=== PATIENT | female | born 1945 | race Caucasian/White ===

== ENCOUNTER 2019-01-24 01:43 | Emergency (ER) | payer MEDICARE, OTHER ==
[~2019-01-24] VITALS: Ht 165.1 cm; Wt 81.8 kg
[2019-01-24 01:46] VITALS: Ht 165.1 cm; Wt 81.8 kg
[2019-01-24] MEDS ORDERED: OMEPRAZOLE20 M1 PO (01:49)
[2019-01-24] MEDS ORDERED: COZAAR50 MG PO (01:49)
[2019-01-24] MEDS ORDERED: COREG12.5 MG PO (01:50)
[2019-01-24] MEDS ORDERED: NULEV0.125 MG PO (01:50)
[2019-01-24] MEDS ORDERED: ZOFRAN4 MG PO (01:51)
[2019-01-24 02:29] LABS: BASOPHILS 0.1 % (0-2); EOSINOPHILS 0.7 % (0-7); HEMATOCRIT 41.4 % (36.0-48.0); HEMOGLOBIN 14.1 g/dL (12-16); IMMATURE GRANULOCYTES 0.1 % (0-5); LYMPHOCYTES 6.4 % (15-50); MCH 31.1 pg (26.0-34.0); MCHC 34.1 g/dL (31.0-37.0); MCV 91.2 fL (80.0-100.0); MEAN PLATELET VOLUME 11.3 fL (7.4-10.4); MONOCYTES 4.9 % (2-11); NEUTROPHILS 87.8 % (40-80); PLATELET COUNT 190 10x3/uL (130-400); RBC 4.54 10x6/uL (4.00-5.40); RDW 13.9 % (11.5-14.5); WBC 14.8 10x3/uL (4.8-10.8)
[2019-01-24 02:41] LABS: ALBUMIN 3.4 g/dL (3.4-5.0); ANION GAP 7.9 mmol/L (8-16); BILIRUBIN - TOTAL 0.42 mg/dL (0.2-1.3); CALCIUM 8.9 mg/dL (8.5-10.1); CARBON DIOXIDE 31.8 mmol/L (21.0-32.0); CREATININE - SERUM 0.9 mg/dL (0.6-1.3); POTASSIUM - SERUM 3.7 mmol/L (3.5-5.1); PROTEIN - SERUM 7.2 g/dL (6.4-8.2)
[2019-01-24] MEDS ORDERED: ZOFRAN ODT4 MG/UDTAB PO (02:52)
[2019-01-24] MEDS ORDERED: IMODIUM2 MG PO (02:52)
[2019-01-24 05:35] VITALS: BP 109/48
== END 2019-01-24 05:35 | disposition home or self-care (01) ==
LOC: D.ER 01:43
PROVIDERS: Emergency Medicine
DX: K52.29 Other allergic and dietetic gastroenteritis and colitis (principal); E86.0 Dehydration

== ENCOUNTER 2019-05-18 19:30 | Emergency (ER) | payer MEDICARE, OTHER ==
[~2019-05-18] VITALS: Ht 165.1 cm; Wt 77.3 kg
[~2019-05-18 19:30] MED LIST: COREG12.5 MG PO; COZAAR50 MG PO; IMODIUM2 MG PO; NULEV0.125 MG PO; OMEPRAZOLE20 M1 PO; ZOFRAN ODT4 MG/UDTAB PO; ZOFRAN4 MG PO
[2019-05-18 19:49] VITALS: Ht 165.1 cm; Wt 77.3 kg
[2019-05-18] MEDS ORDERED: FLUTICASONE PRO16 GM NASAL (21:09)
[2019-05-18] MEDS ORDERED: AMOXICILLIN500 M1 PO (21:09)
[2019-05-18 22:04] VITALS: BP 132/73
== END 2019-05-18 22:04 | disposition home or self-care (01) ==
LOC: D.ER 19:30
DX: J32.9 Chronic sinusitis, unspecified (principal); J44.9 Chronic obstructive pulmonary disease, unspecified; Z95.0 Presence of cardiac pacemaker

== ENCOUNTER 2019-06-11 05:39 | Inpatient (IN) | payer MEDICARE, OTHER ==
[~2019-06-11] VITALS: Ht 165.1 cm; Wt 85.8 kg
--- NOTE | ~2019-06-11 | EC ---
PATIENT:TIMUR ROLAND DATE OF SERVICE: 06/11/19 SEX: F MEDICAL RECORD: [id number] DATE OF : 43 LOCATION:D.M2 D.210 AGE OF PATIENT: 74 ADMISSION DATE: 06/11/19 REFERRING PHYSICIAN: INTERPRETING PHYSICIAN: ANA LUISA NICHOLE MD ECHOCARDIOGRAM REPORT ECHO CHARGES 4 ECHO COMPLETE Date: 06/11/19 CLINICAL DIAGNOSIS: SOB/FLU HX OF ICD ECHOCARDIOGRAPHIC MEASUREMENTS (adult normal given) AC root (d.<3.7cm) 3.5 cm LV Septum d (<1.2 cm> 1.3 cm Valve Excursion 1.7 cm LV Septum (systole) 1.6 cm Left Atria (s.<4.0cm> 3.7 cm LVPW d(<1.2cm) 1.4 cm RV (d.<2.3cm) 4.3 cm LVPW (sytole) 1.7 cm LV diastole(<5.6CM) 4.9 cm MV E-F(>70mm/sec) cm LV systole 3.6 cm LVOT Diameter 1.9 cm MV exc.(>10mm) 1.6 cm Est.ejection fraction (50-75%) % DOPPLER: LVIT cm/sec A 86.0 cm/sec E 62.0 cm/sec LA cm/sec RVSP 27 mmHg LVOT 94 cm/sec AOP1/2T m/s Asc. Ao 134 cm/sec RVOT 87 cm/sec RA cm/sec PA 123 cm/sec AV Gradient Peak 7.14 mmHg AV Mean 4.26 mmHg AV Area 1.9 cm MV Gradient Peak 2.81 mmHg MV Mean 1.31 mmHg MV Area cm COMMENTS: Life Sciences Manager: 2 AIDEN ALEMAN Hydro Generation Manager: 1 Dr. Nichole TAPE# PACS Pericardial Effusion N DATE OF SERVICE: ECHOCARDIOGRAM FINDINGS: 1. Left ventricular chamber size is within normal limits. Left ventricular systolic function is normal. Overall ejection fraction estimated at 65%. 2. Left atrium is within normal limits at 3.7 cm. Right atrium and right ventricle chamber sizes are mildly dilated. 3. Valvular structures have normal structure and motion. ECHOCARDIOGRAM REPORT [id number] TIMUR ROLAND 4. Doppler interrogation reveals mild aortic insufficiency, mild tricuspid regurgitation, no other valvular insufficiency or stenosis. 5. No evidence of pericardial effusion or left ventricular thrombus. TRANSINT:[id number] Voice Confirmation ID: [id number] DOCUMENT ID: [id number] ANA LUISA NICHOLE MD CC: [id number] DICTATION DATE: 06/12/19 1255 GROCERY CLERK STOCKING: 06/12/19 1344 ADM IN [facility] [address] [id number]
--- NOTE | ~2019-06-11 | CN ---
PATIENT NAME:TIMUR ESPINAL MEDICAL RECORD: [id number] : 43 LOCATION:. D.2104 ADMIT DATE: 06/11/19 ACCOUNT: [id number] CONSULTING PHYSICIAN: ANA LUISA OCAMPO MD REFERRING PHYSICIAN: PELON SAAB MD DATE OF CONSULTATION: 06/11/2019 CARDIOLOGY CONSULTATION DIAGNOSES: 1. Shortness of breath, dyspnea on exertion. 2. Pneumonia. 3. Valvular heart disease. 4. Cardiomyopathy. 5. ICD. 6. Hypertension. 7. Chronic obstructive pulmonary disease. 8. Chest pain. HISTORY OF PRESENT ILLNESS: Ms. Espinal presents with 1 week of increasing shortness of breath, dyspnea on exertion. She has not noted any fever or chills. She has had a cough that is productive of discolored sputum. She was admitted and is being treated for pneumonia. She has a history of a cardiomyopathy, followed at the [facility]. This appears to be a nonischemic cardiomyopathy. She underwent cardiac catheterization that revealed no significant coronary artery disease. She has been having some chest pain, but only associated with cough. No chest pain elsewise. She was told that her cardiomyopathy was due to valvular heart disease and she has an ICD. She is not in any heart failure. She has no lower extremity edema. Shortness of breath has just been since the pneumonia. She is on Coreg and Cozaar for medical therapy of the cardiomyopathy. She has had no ICD discharges. PHYSICAL EXAMINATION: CONSTITUTIONAL/GENERAL APPEARANCE: Well nourished, well developed, appears stated age. EYES: Lids and conjunctivae noninjected. No discharge. No pallor. ENT: Lips within normal limit. No cyanosis. No pallor. NECK: Carotid arteries, bilateral normal upstroke. No bruits. No thrills. No jugular venous pressure or distention. CERVICAL LYMPH NODES: Nontender. Nonenlarged. THYROID: Not enlarged. No nodules. CARDIOVASCULAR: Precordial exam, nondisplaced. No heaves or pericardial thrills. Rate and rhythm, regular. Heart sounds, normal S1, normal S2. No S3, no gallop, no rub. Systolic murmur, not heard. Diastolic murmur, not heard. RESPIRATORY: Respiratory effort, unlabored. Normal curvature. No thoracic deformity. No chest wall tenderness. Percussion, resonant. Auscultation, clear. No wheezes, no rales, no rhonchi. ABDOMEN: Soft, nondistended, nontender. No abdominal pain, no vomiting and normal appetite. MUSCULOSKELETAL: No joint tenderness, normal gait, normal tone. SKIN: Warm and dry. OVERALL IMPRESSION: Cardiomyopathy, but is stable from a cardiac standpoint at this time. No dysrhythmias are noted. At this time, she is stable from a cardiac standpoint. We will get an echocardiogram so we have that documentation CONSULT REPORT [id number] TIMUR ESPINAL here, otherwise no other cardiac workup or treatment is necessary. TRANSINT:[id number] Voice Confirmation ID: [id number] DOCUMENT ID: [id number] ANA LUISA OCAMPO MD CC: [id number] DICTATION DATE: 06/11/19916 PIPE SMOKER MACHINE OPERATOR: 06/11/19 1029 ADM IN [id number] [place] [address]
[~2019-06-11 05:39] MED LIST changes: +AMOXICILLIN500 M1 PO; +FLUTICASONE PRO16 GM NASAL
[2019-06-11] MEDS ORDERED: SPIRIVA18 MCG (05:48)
[2019-06-11] MEDS ORDERED: ALBUTEROL SULF8.5 GM INH (05:48)
[2019-06-11 06:07] LABS: BASOPHILS 0.4 % (0-2); EOSINOPHILS 3.3 % (0-7); HEMATOCRIT 39.9 % (36.0-48.0); HEMOGLOBIN 13.2 g/dL (12-16); IMMATURE GRANULOCYTES 0.2 % (0-5); LYMPHOCYTES 14.6 % (15-50); MCH 30.5 pg (26.0-34.0); MCHC 33.1 g/dL (31.0-37.0); MCV 92.1 fL (80.0-100.0); MEAN PLATELET VOLUME 10.7 fL (7.4-10.4); MONOCYTES 14.1 % (2-11); NEUTROPHILS 67.4 % (40-80); PLATELET COUNT 217 10x3/uL (130-400); RBC 4.33 10x6/uL (4.00-5.40); RDW 13.8 % (11.5-14.5); WBC 8.4 10x3/uL (4.8-10.8)
[2019-06-11 06:20] LABS: CALC OSMOLALITY 273 mosm/kg (275-300); CARBON DIOXIDE 29.1 mmol/L (21.0-32.0); CHLORIDE - SERUM 100 mmol/L (98-107); CREATININE - SERUM 0.7 mg/dL (0.6-1.3); GLUCOSE 118 mg/dL (74-106); POTASSIUM - SERUM 3.9 mmol/L (3.5-5.1); SODIUM 137 mmol/L (136-145); UREA NITROGEN 9 mg/dL (7-18); eGFR NON AFRICAN AMERICAN 86 mL/min (90-120)
[2019-06-11 06:24] LABS: APTT 30.8 SECONDS (22.8-39.4); INR 1.11 (0.85-1.17); PROTIME 13.8 SECONDS (11.6-15.0)
[2019-06-11 06:26] LABS: D-DIMER-QUANTITATIVE 1.65 ug/mLFEU (0.20-0.54)
[2019-06-11 06:32] LABS: ALBUMIN 3.1 g/dL (3.4-5.0); ALKALINE PHOSPHATASE 109 U/L (46-116); ALT (SGPT) 24 U/L (10-68); BILIRUBIN - TOTAL 0.53 mg/dL (0.2-1.3); MAGNESIUM - SERUM 1.9 mg/dL (1.8-2.4); PRO BNP 802 pg/mL (0-450)
[2019-06-11 06:39] LABS: TROPONIN-I < 0.017 ng/mL (0.000-0.060)
[2019-06-11 06:57] LABS: APPEARANCE CLEAR (CLEAR); BILIRUBIN NEGATIVE (NEGATIVE); COLOR STRAW (YELLOW); GLUCOSE NEGATIVE (NEGATIVE); KETONE NEGATIVE (NEGATIVE); NITRITE NEGATIVE (NEGATIVE); PROTEIN NEGATIVE (NEGATIVE); SPECIFIC GRAVITY 1.005 (1.005-1.020); UROBILINOGEN NORMAL (NORMAL)
--- NOTE | 2019-06-11 07:40 | NUR ---
PATIENT ARRIVED HERE FROM THE ER. SHE REPORTS THAT SHE HAS BEEN NOT FEELING WELL SINCE THANKSGIVING, BUT SHE HAS BEEN PUSHING THROUGH. SHE WENT TO THE CLINIC AND GOT SOME MEDICATIONS THAT WORKED FOR A SHORT TIME AND THEN STOPPED WORKING.
[2019-06-11 08:26] VITALS: BP 137/57
--- NOTE | 2019-06-11 10:53 | NUR ---
collected flu swab and turned in to lab.
[2019-06-11 12:03] VITALS: BP 137/57
[2019-06-11 14:04] VITALS: BP 137/57; BMI 28.3
[2019-06-11 16:16] VITALS: BP 110/38
--- NOTE | 2019-06-11 19:13 | NUR ---
RECEIVED UP IN BED WITH EYES OPEN AND TV ON. ALERT AND ORIENTED X4. UP AD LEIGHANN TO B/R. REMAINS ON ISOLATION D/T + TYPE A FLU . TELEMETRY IN PLACE. O2@ 2 LITERS PER N/C. IV TO RIGHT HAND SL. LEFT CHEST PACEMAKER/DEFIBILLATOR. DENIES ANY NEEDS AT THIS TIME.
[2019-06-11 20:00] VITALS: BP 116/52
[2019-06-12] VITALS: BP 133/54
[2019-06-12 04:00] VITALS: BP 145/58
[2019-06-12 05:04] LABS: BASOPHILS 0.5 % (0-2); EOSINOPHILS 1.9 % (0-7); HEMATOCRIT 38.2 % (36.0-48.0); HEMOGLOBIN 12.2 g/dL (12-16); IMMATURE GRANULOCYTES 0.2 % (0-5); LYMPHOCYTES 18.5 % (15-50); MCH 29.9 pg (26.0-34.0); MCHC 31.9 g/dL (31.0-37.0); MCV 93.6 fL (80.0-100.0); MONOCYTES 16.1 % (2-11); NEUTROPHILS 62.8 % (40-80); PLATELET COUNT 195 10x3/uL (130-400); RBC 4.08 10x6/uL (4.00-5.40); RDW 14.1 % (11.5-14.5); WBC 8.4 10x3/uL (4.8-10.8)
[2019-06-12 05:12] LABS: ANION GAP 8.8 mmol/L (8-16); CALCIUM 8.4 mg/dL (8.5-10.1); CARBON DIOXIDE 30.9 mmol/L (21.0-32.0); CREATININE - SERUM 0.8 mg/dL (0.6-1.3); POTASSIUM - SERUM 3.7 mmol/L (3.5-5.1)
--- NOTE | 2019-06-12 07:40 | NUR ---
A/A/0X4. DENIES ANY NEEDS AT THIS TIME AND VOICES NO COMPLAINTS. SL PATENT TO RIGHT HAND WITHOUT REDNESS OR EDEMA. 02 ON PER N/C AT 2 L/M WITHOUT ANY RESP DISTRESS NOTED. ASSESSMENT COMPLETED AND WILL CONTINUE POC. CALL LIGHT IN REACH AND BED IN LOW POSITION.
[2019-06-12 08:19] VITALS: BP 109/50
[2019-06-12 11:48] VITALS: BP 127/67
--- NOTE | 2019-06-12 14:36 | NUR ---
I have reviewed this patient and I concur with the Shift Assessment completed by the Licensed Practical Nurse today this shift.
[2019-06-12 16:44] VITALS: BP 132/60
--- NOTE | 2019-06-12 19:55 | NUR ---
RECIEVED UP IN BED WITH EYES OPEN AND TV ON. ALERT AND ORIENTED X4. UP AD LEIGHANN. REMAINS IN ISOLATION D/T POSITVE FLU. IV TO RIGHT HAND SL. PACEMAKER/DEFIB TO LEFT CHEST. O2@ 2 LITERS PER N/C. DENIES ANY NEEDS AT THIS TIME.
[2019-06-12 20:00] VITALS: BP 124/68
[2019-06-13] VITALS: BP 134/60
[2019-06-13 04:00] VITALS: BP 142/56
[2019-06-13 05:34] LABS: BASOPHILS 0.5 % (0-2); EOSINOPHILS 5.9 % (0-7); HEMATOCRIT 38.7 % (36.0-48.0); HEMOGLOBIN 12.3 g/dL (12-16); IMMATURE GRANULOCYTES 0.3 % (0-5); LYMPHOCYTES 25.3 % (15-50); MCH 30.2 pg (26.0-34.0); MCHC 31.8 g/dL (31.0-37.0); MCV 95.1 fL (80.0-100.0); MEAN PLATELET VOLUME 11.2 fL (7.4-10.4); MONOCYTES 15.9 % (2-11); NEUTROPHILS 52.1 % (40-80); PLATELET COUNT 221 10x3/uL (130-400); RBC 4.07 10x6/uL (4.00-5.40); RDW 14.3 % (11.5-14.5); WBC 6.4 10x3/uL (4.8-10.8)
[2019-06-13 05:55] LABS: CALC OSMOLALITY 280 mosm/kg (275-300); CALCIUM 8.4 mg/dL (8.5-10.1); CARBON DIOXIDE 31.6 mmol/L (21.0-32.0); CHLORIDE - SERUM 104 mmol/L (98-107); CREATININE - SERUM 0.7 mg/dL (0.6-1.3); GLUCOSE 94 mg/dL (74-106); POTASSIUM - SERUM 3.8 mmol/L (3.5-5.1); SODIUM 142 mmol/L (136-145); eGFR NON AFRICAN AMERICAN 86 mL/min (90-120)
[2019-06-13 06:05] LABS: UREA NITROGEN 8 mg/dL (7-18)
[2019-06-13 08:41] VITALS: BP 140/59
[2019-06-13 13:18] VITALS: BP 118/56
[2019-06-13 13:57] VITALS: Ht 165.1 cm; Wt 85.8 kg
--- NOTE | 2019-06-13 19:36 | NUR ---
EVENING ROUNDS COMPLETE. PT SITTING UP IN BED. NO SIGNS OF DISTRESS. PT DENIES ANY PAIN OR NEEDS AT THIS TIME. CL IN REACH, BED IN LOWEST POSITION.
[2019-06-13 20:00] VITALS: BP 129/58
[2019-06-14] VITALS: BP 139/63
[2019-06-14 04:00] VITALS: BP 110/62
[2019-06-14 05:40] LABS: BASOPHILS 0.5 % (0-2); EOSINOPHILS 5.7 % (0-7); HEMATOCRIT 39.3 % (36.0-48.0); HEMOGLOBIN 12.5 g/dL (12-16); IMMATURE GRANULOCYTES 0.3 % (0-5); LYMPHOCYTES 29.6 % (15-50); MCH 30.2 pg (26.0-34.0); MCHC 31.8 g/dL (31.0-37.0); MCV 94.9 fL (80.0-100.0); MONOCYTES 13.7 % (2-11); NEUTROPHILS 50.2 % (40-80); PLATELET COUNT 234 10x3/uL (130-400); RBC 4.14 10x6/uL (4.00-5.40); RDW 14.1 % (11.5-14.5); WBC 6.1 10x3/uL (4.8-10.8)
[2019-06-14 06:38] LABS: CALC OSMOLALITY 279 mosm/kg (275-300); CALCIUM 8.6 mg/dL (8.5-10.1); CARBON DIOXIDE 30.2 mmol/L (21.0-32.0); CHLORIDE - SERUM 104 mmol/L (98-107); CREATININE - SERUM 0.7 mg/dL (0.6-1.3); GLUCOSE 95 mg/dL (74-106); SODIUM 141 mmol/L (136-145); UREA NITROGEN 10 mg/dL (7-18); eGFR NON AFRICAN AMERICAN 86 mL/min (90-120)
[2019-06-14 06:42] LABS: POTASSIUM - SERUM 4.1 mmol/L (3.5-5.1)
[2019-06-14 07:36] VITALS: BP 132/63
[2019-06-14 11:34] VITALS: BP 152/69
[2019-06-14] MEDS ORDERED: TAMIFLU75 MG PO ×2 (11:56→12:01)
[2019-06-14] MEDS ORDERED: GUAIFENESI100 MG/5 M PO ×2 (11:56→12:01)
[2019-06-14] MEDS ORDERED: ZITHROMAX500 MG PO ×2 (11:57→12:01)
[2019-06-14] MEDS ORDERED: OMNICEF300 MG PO ×2 (11:57→12:01)
[2019-06-14] MEDS ORDERED: ROBITUSSIN AC (WITH PO ×2 (11:58→12:01)
[2019-06-14] MEDS ORDERED: Tessalon Perle PO ×2 (11:58→12:01)
--- NOTE | 2019-06-14 13:31 | MORECARE ---
CASE MANAGEMENT DISCHARGE SUMMARY PATIENT: TIMUR ROLAND UNIT: [id number] ADM DATE: 06/11/19 AGE: 74 : 44 SEX: F ROOM/BED: D.9916 AUTHOR: ROBERTODOC PHYSICIAN: REFERRING PHYSICIAN: PELON SAAB MD DATE OF SERVICE: 06/14/19 Discharge Plan Patient Name: TIMUR ROLAND Facility: [facility]:[place] : 1945 Planned Disposition: Home Anticipated Discharge Date: 06/14/19 Discharge Date: Expected LOS: 3 Initial Reviewer: [email or web address] Initial Review Date: 06/14/2019 Generated: 06/14/19 2:30 pm Comments DCP- Discharge Planning Updated by [id number]: Helen Lopez on 06/14/19 12:[address] Patient Name: TIMUR ROLAND Admission Status: ER Accout number: [id number] Admission Date: 06-11-2019 : 1945 Admission Diagnosis: Attending: PELON SAAB Current LOS: 3 Anticipated DC Date: 06-14-2019 Planned Disposition: Home Primary Insurance: MEDICARE A & B Discharge Planning Comments: CM MET WITH PATIENT ABOUT DC PLANNING/NEEDS. MAY NEED 02, WALK TEST ORDERED. AV SIGNED FOR AERKOSTASE OR YAWARE. PATIENT PLAN TO DC TO HOME TODAY WITH . IMM SIGNED. Chemistry Physics Teacher: Helen Lopez Appended by Helen Lopez on 06/14/2019 13:26 DIGITAL SALES EXECUTIVE: DOES NOT QUALIFY FOR 02 PER WALKTEST. DCPIA - Discharge Planning Initial Assessment Updated by [email or web address]: Helen Lopez on 06/14/19 1:24 pm * Is the patient Alert and Oriented? Yes * PCP [facility] IN [place] * [facility] * Preadmission Environment Home with Family * ADLs Independent * Other Equipment NONE * Community resources currently utilized None * Additional services required to return to the preadmission environment? No * Can the patient safely return to the preadmission environment? Yes * Has this patient been hospitalized within the prior 30 days at any hospital? No Coverage Notice Reviewer: [id number] Eyal Lopez Notice Issued Date-Time: 06/14/2019 13:25 Notice Type: IM Discharge Notice Notice Delivered To: Patient Relationship to Patient: Product Development Technician Name: Delivery Method: HAND - Hand Delivered Ave Days: Prior Verbal Notification: Recipient Understood Notice: Yes Recipient Signature: Yes Med Rec Note Co-signed by Attending: Coverage Notice Comment: Reviewer: [email or web address] Eyal Lopez Notice Issued Date-Time: 06/14/2019 13:25 Notice Type: Patient Choice Letter Notice Delivered To: Patient Relationship to Patient: Product Development Technician Name: Delivery Method: HAND - Hand Delivered Ave Days: Prior Verbal Notification: Recipient Understood Notice: Yes Recipient Signature: Yes Med Rec Note Co-signed by Attending: Coverage Notice Comment: AV BARAJAS OR NADJA. Patient Name: TIMUR ROLAND Page [phone] at 1331 All edits/amendments must be made on the electronic document DICTATION DATE: 06/14/19 1330 SHEETMETAL TRADES WORKER: SHANTELLE 06/14/19 1330 RPT#: [id number] DC DATE: STATUS: ADM IN [facility] [address] [place] [address] END OF REPORT
--- NOTE | 2019-06-14 15:06 | NUR ---
ALERT AND ORIENTED X4. SITTING UP IN BED. DC RT HAND IV TIP INTACT. DISCHARGE INSTRUCTIONS GIVEN VERBALLY AND WRITTEN. DISCHARGE PAPERS SIGNED ON CHART. ESCORT TO RIDE VIA WHEELCHAIR. REMAINS FREE FROM INJURY.
--- NOTE | 2019-06-16 08:53 | MORECARE ---
CASE MANAGEMENT DISCHARGE SUMMARY PATIENT: TIMUR ROLAND UNIT: [id number] ADM DATE: 06/11/19 AGE: 74 : 44 SEX: F ROOM/BED: D.9987 AUTHOR: ROBERTODOC PHYSICIAN: REFERRING PHYSICIAN: PELON SAAB MD DATE OF SERVICE: 06/16/19 Discharge Plan Patient Name: TIMUR ROLAND Facility: [facility]:[place] : 1945 Planned Disposition: Home Anticipated Discharge Date: 06/14/19 Discharge Date: 06/14/2019 Expected LOS: 3 Initial Reviewer: [email or web address] Initial Review Date: 06/14/2019 Generated: 06/16/19 9:52 am Comments DCP- Discharge Planning Updated by [id number]: Helen Lopez on 06/14/19 12:[address] Patient Name: TIMUR ROLAND Admission Status: ER Accout number: [id number] Admission Date: 06-11-2019 : 1945 Admission Diagnosis: Attending: PELON SAAB Current LOS: 3 Anticipated DC Date: 06-14-2019 Planned Disposition: Home Primary Insurance: MEDICARE A & B Discharge Planning Comments: CM MET WITH PATIENT ABOUT DC PLANNING/NEEDS. MAY NEED 02, WALK TEST ORDERED. AV SIGNED FOR AERKOSTASE OR YAWARE. PATIENT PLAN TO DC TO HOME TODAY WITH . IMM SIGNED. Overweaver: Helen Lopez Appended by Helen Lopez on 06/14/2019 13:26 ADMITTING OFFICER: DOES NOT QUALIFY FOR 02 PER WALKTEST. DCPIA - Discharge Planning Initial Assessment Updated by [id number]: Helen Lopez on 06/14/19 1:24 pm * Is the patient Alert and Oriented? Yes * PCP [facility] IN [place] * [facility] * Preadmission Environment Home with Family * ADLs Independent * Other Equipment NONE * Community resources currently utilized None * Additional services required to return to the preadmission environment? No * Can the patient safely return to the preadmission environment? Yes * Has this patient been hospitalized within the prior 30 days at any hospital? No Coverage Notice Reviewer: [id number] - Helen Lopez Notice Issued Date-Time: 06/14/2019 13:25 Notice Type: IM Discharge Notice Notice Delivered To: Patient Relationship to Patient: Wound Care Rn Name: Delivery Method: HAND - Hand Delivered Ave Days: Prior Verbal Notification: Recipient Understood Notice: Yes Recipient Signature: Yes Med Rec Note Co-signed by Attending: Coverage Notice Comment: Reviewer: [email or web address] Eyal Lopez Notice Issued Date-Time: 06/14/2019 13:25 Notice Type: Patient Choice Letter Notice Delivered To: Patient Relationship to Patient: Wound Care Rn Name: Delivery Method: HAND - Hand Delivered Ave Days: Prior Verbal Notification: Recipient Understood Notice: Yes Recipient Signature: Yes Med Rec Note Co-signed by Attending: Coverage Notice Comment: AV BARAJAS OR NADJA. Last DP export: 06/14/19 12:31 Patient Name: TIMUR ROLAND Page [phone] at 0853 All edits/amendments must be made on the electronic document DICTATION DATE: 06/16/1952 SUPERVISOR ORNAMENTAL IRONWORKING: SHANTELLE 06/16/19 0852 RPT#: [id number] DC DATE:06/14/19 STATUS: DIS IN [facility] [address] [place] [address] END OF REPORT
== END 2019-06-14 15:16 | disposition home or self-care (01) | DRG 193 ==
LOC: D.ER 05:39 → D.M2 06:31
PROVIDERS: Family Medicine; ADMIT Internal Medicine Nephrology; ATTEND Internal Medicine Nephrology
DX: J10.00 Influenza due to other identified influenza virus with unspecified type of pneumonia (principal); J96.01 Acute respiratory failure with hypoxia; J44.1 Chronic obstructive pulmonary disease with (acute) exacerbation; J44.0 Chronic obstructive pulmonary disease with (acute) lower respiratory infection; I42.9 Cardiomyopathy, unspecified; K21.9 Gastro-esophageal reflux disease without esophagitis; I10 Essential (primary) hypertension